=== PATIENT | female | born 1990 | race Caucasian/White ===

== ENCOUNTER 2018-07-09 15:18 | Emergency (ER) | payer OTHER, MEDICAID ==
[2018-07-09] MEDS ORDERED: DEXAMETHASONE 10 MG/ML 1 ML INJ (16:32)
== END 2018-07-09 16:42 | disposition home or self-care (01) ==
LOC: FTE 15:18
DX: J06.9 Acute upper respiratory infection, unspecified (principal)
CPT/HCPCS: 99282; J1100